=== PATIENT | male | born 1980 | race Hispanic/Latino ===

== ENCOUNTER 2019-04-26 18:22 | Emergency (ER) | payer OTHER, SELFPAY ==
[2019-04-26 18:29] VITALS: BP 149/89; PULSE 70; RESP 16; O2SAT 100; BMI 25.7
--- NOTE | 2019-04-26 19:16 | ED_ITS ---
HPI - Extremity Injury (Upper) <NARCISO Ramirez - Last Filed: 04/26/19 21:44> General Chief Complaint: Extremity Injury, Upper Stated Complaint: laceration to index finger left hand Time Seen by Provider: 04/26/19 19:12 Source: patient Mode of arrival: Ambulatory Limitations: no limitations History of Present Illness HPI narrative: This is a 39-year-old male, nonsmoker, who presents to ED with vertical laceration on left hand 2nd digit along radial aspect in medial phalanx. Patient reports patient had accidentally cut affected finger with a clean knife while he was slicing a cheese. Patient states tetanus immunization was updated this spring. Patient reports is able to move his fingers without difficulty. Affected finger laceration has been dressed by his who is an RN at home prior coming into ED with pressure dressing. Related Data Home Medications Medication Instructions Recorded Confirmed metoprolol succinate PO 04/26/19 telmisartan mg 04/26/19 Allergies Allergy/AdvReac Type Severity Reaction Status Date / Time No Known Drug Allergies Allergy Verified 04/26/19 18:29 Review of Systems <NARCISO Ramirez - Last Filed: 04/26/19 21:44> Review of Systems ROS Unobtainable: All systems reviewed & are unremarkable except as noted in HPI and below Patient History <NARCISO Ramirez - Last Filed: 04/26/19 21:44> Medical History Torsion of testis, unspecified (Acute) Surgical History H/O cardiac radiofrequency ablation (Acute) Social History Smoking Status: Never smoker alcohol intake frequency: holidays/special occasions only Substance Use Type: does not use Exam <NARCISO Ramirez - Last Filed: 04/26/19 21:44> Narrative Exam Narrative: General appearance: well developed, well nourished, in no acute distress. Head: normocephalic, atraumatic, no scalp lesions, non-tender. Eye: pupil equal, round. EOMI. Nose: nares patent. Oral: mucosa moist. Neck/Thyroid: neck supple, full range of motion, no visible masses. Skin: 2 cm linear/vertical laceration along L radial aspect in mid-phalanx. no suspicious rashes, lesions over other visible areas. Warm and dry. Heart: no clubbing, no cyanosis, no edema. Lungs: Breathing even and unlabored. No stridor. No accessory muscles used. Chest: normal shape and expansion. Abdomen: non-obese, non-distended. Neurologic: alert and oriented. Cognitive exam, PATENT COUNSEL and PNS grossly intact on informal exam. Psych: good eye contact, normal affect. Initial Vital Signs Initial Vital Signs: Vital Signs Pulse Rate 70 04/26/19 18:29 Respiratory Rate 16 04/26/19 18:29 Blood Pressure 149/89 H 04/26/19 18:29 Pulse Oximetry 100 04/26/19 18:29 Extrem Left upper extremity: hand Details: neuromotor exam normal Details: fingers 2-5 ABduction normal, neurosensory exam normal Details: radial nerve sensory function normal and digital nerve sensory function normal, tendon exam normal Location: of the 2nd digit Details: extensor tendon, flexor digitorum profundus and flexor digitorum superficialis, normal ROM of fingers, no swelling and laceration (Second radial aspect of mid phalanx); no tenderness <Divina Reynoso DO - Last Filed: 04/27/19 02:48> Initial Vital Signs Initial Vital Signs: Vital Signs Pulse Rate 70 04/26/19 18:29 Respiratory Rate 16 04/26/19 18:29 Blood Pressure 149/89 H 04/26/19 18:29 Pulse Oximetry 100 04/26/19 18:29 Procedures <NARCISO Ramirez - Last Filed: 04/26/19 21:44> Laceration Repair Laceration 1: Site: hand (2nd finger) Side (If applicable): left Size (cm): 2 Description: linear Depth: simple, single layer Local Anesthetic: lidocaine 1% and with bicarb Amount of anesthesia used (mL): 1 Pre-repair: wound explored and irrigated extensively Skin layer closed with: nylon Size (cm): 4-0 Number of sutures: 4 Technique: simple, interrupted Course <NARCISO Ramirez - Last Filed: 04/26/19 21:44> Orders Ordered: Discontinued Medications Bacitracin (Bacitracin) 1 applic TOP NOW ONE Stop: 04/26/19 19:21 Last Admin: 04/26/19 19:20 Dose: 1 applic Documented by: [email or web address] Lidocaine/Sodium Bicarbonate (Buffered Lidocaine 10 Ml Syr) 10 ml INJ NOW ONE Stop: 04/26/19 19:21 Last Admin: 04/26/19 19:20 Dose: 10 ml Documented by: LINDAL Vital Signs Vital signs: Vital Signs - 8 hr 04/26/19 20:08 Pulse Rate 67 Respiratory Rate 15 Blood Pressure 131/61 Pulse Oximetry 100 <Divina Reynoso DO - Last Filed: 04/27/19 02:48> Orders Ordered: Discontinued Medications Bacitracin (Bacitracin) 1 applic TOP NOW ONE Stop: 04/26/19 19:21 Last Admin: 04/26/19 19:20 Dose: 1 applic Documented by: [email or web address] Lidocaine/Sodium Bicarbonate (Buffered Lidocaine 10 Ml Syr) 10 ml INJ NOW ONE Stop: 04/26/19 19:21 Last Admin: 04/26/19 19:20 Dose: 10 ml Documented by: LINDAL Vital Signs Vital signs: Vital Signs - 8 hr 04/26/19 20:08 Pulse Rate 67 Respiratory Rate 15 Blood Pressure 131/61 Pulse Oximetry 100 MDM - Extremity Injury (Upper) <NARCISO Ramirez - Last Filed: 04/26/19 21:44> Differential Diagnosis Differential diagnosis: Likely other (Laceration of left 2nd digit) [facility] Narrative Medical decision making narrative: 2 cm laceration in left 2nd finger was repaired with sutures. Please see procedural note and patient tolerated well. Affected finger was dressed with tubular gauze by nursing staff. Patient had Tdap updated this sprain. We discussed return precautions and patient ve rbalized understand and agrees with the treatment plan for wound recheck in 2-3 days by his PCP and suture removal in 7-10 days. We discussed wound care at home after 24 hour period and verbalized understanding as well. Discharge Plan Departure Patient Disposition: Home Clinical Impression: Laceration of finger Qualifiers: Encounter type: initial encounter Finger: index finger Damage to nail status: without damage Foreign body presence: without foreign body Laterality: left Qualified Code(s): S61.211A - Laceration without foreign body of left index finger without damage to nail, initial encounter Discharge Date/Time: 04/26/19 20:03 Instructions: DI for Laceration Repair -- Simple Activity Restrictions/Additional Instructions: You have been diagnosed with [laceration to left finger and repair with sutures]. What to do: *Take your medications as directed. You can take [id number] Tylenol and or Motrin as needed for discomfort. Please do not get your wound soaked in the water until suture removal. Keep your dressing intact for next 24 hrs. After then, you could remove your dressing, wash with soap and water. Pat dry with clean paper towel and dress it with antibiotic ointment. You can change dressing as needed and daily. Please monitor for signs and symptoms for infection such as increasing redness, swelling, warmth, pain, fever, purulent discharge. If this occurs, please return to ED or follow up with your primary care physician since your wound may be gotten infected. Please follow up with your primary care provider in 2-3 days for recheck wound. Your suture should be removed [ 7-10 ] days. This can be done by your primary provider, walk-in clinic or here in ED. Please keep your wound clean, dry and intact all times. Prescriptions: No Action metoprolol succinate 25 mg tablet extended release 24 hr PO RF: 0 telmisartan 40 mg tablet RF: 0 Referrals: Jim Griffiths PA-C [Primary Care Provider] -
[2019-04-26] MEDS: LIDO 1%/SOD BICARB 8.4% (10ML) 10 ML SYRINGE INJ (19:20)
[2019-04-26] MEDS: BACITRACIN OINT 0.9 GM PCKT 1 APPLIC TOP (19:20)
[2019-04-26 20:08] VITALS: BP 131/61; PULSE 67; RESP 15; O2SAT 100
== END 2019-04-26 20:03 | disposition home or self-care (01) ==
PROVIDERS: Emergency Provider Nurse Practitioner Family; PCP Physician Assistant
DX: S61.211A Laceration without foreign body of left index finger without damage to nail, initial encounter (principal)
CPT/HCPCS: 12001; 99282; 99283